=== PATIENT | female | born 1960 | race Two or more races ===

== ENCOUNTER 2017-06-02 11:10 | Outpatient (CLI) | payer BC ==
--- NOTE | 2017-06-02 16:58 | Diagnostic Imaging Report ---
Indication: Pain Technique: XRAY Knee Compl 4v+ R Comparison: MRI of the knee and knee radiographs 08/07/2014 and 07/24/2011 Findings: No acute fractures identified. Degenerative change in the knee is manifest by joint space narrowing, subchondral sclerosis and tricompartmental osteophyte formation. Small intra-articular loose body also noted. No significant suprapatellar joint effusion is identified. No radiopaque foreign body seen. IMPRESSION: No acute fracture or dislocation. Osteoarthrosis as above.
== END 2017-06-02 13:10 | disposition home or self-care (01) ==
LOC: RAD 11:10
DX: M17.11 Unilateral primary osteoarthritis, right knee (principal); M25.461 Effusion, right knee; G89.29 Other chronic pain